=== PATIENT | male | born 1940 | race Caucasian/White ===

== ENCOUNTER 2021-08-16 23:00 | Inpatient (IN) | payer MEDICARE, OTHER ==
[~2021-08-16] VITALS: Ht 172.7 cm; Wt 96.8 kg
[~2021-08-16 23:00] MED LIST: ALBU90OI; QUET300; VENL75ER; [UNRECOGNIZED DRUG - REMARK]
[2021-08-17 01:23] LABS: Source, Urine Foley catheter
[2021-08-17 01:27] LABS: Bilirubin, Urine Neg (Neg); Blood, Urine Neg (Neg); Glucose Qualitative, Urine Neg (Neg); Ketones, Urine Neg (Neg); Leukocyte Esterase, Urine Neg (Neg); Nitrite, Urine Neg (Neg); Protein, Urine Neg (Neg); Urobilinogen, Urine NORM (Normal); pH, Urine 6.5 (5.0-8.0)
[2021-08-17] MEDS ORDERED: ERYT.5TO BOTHEYES (01:29)
[2021-08-17] MEDS ORDERED: POTCHL20ER PO (01:29)
[2021-08-17] MEDS ORDERED: ALLO100 PO (01:30)
[2021-08-17 01:31] LABS: Appearance, Urine Clear (Clear); Color, Urine Yellow (P-Yellow)
[2021-08-17 02:05] LABS: Influenza A, PCR NEGATIVE (NEGATIVE); Influenza B, PCR NEGATIVE (NEGATIVE); Resp Syncytial Virus, PCR NEGATIVE (NEGATIVE); SARS-Cov-2 (COVID-19) PCR, MMC NEGATIVE (NEGATIVE)
[2021-08-17 05:18] LABS: BASOPHILS ABSOLUTE AUTO 0.06 K/mm3 (0.00-0.23); BASOPHILS PERCENT AUTO 1 % (0-2); EOSINOPHILS ABSOLUTE AUTO 0.11 K/mm3 (0.00-0.68); EOSINOPHILS PERCENT AUTO 1 % (0-6); Hemoglobin 9.2 g/dL (13.5-17.5); IMMATURE GRAN ABSOLUTE AUTO 0.04 K/mm3 (0.00-0.10); IMMATURE GRAN PERCENT AUTO 0 % (0-1); LYMPHOCYTES ABSOLUTE AUTO 0.69 K/mm3 (0.84-5.20); LYMPHOCYTES PERCENT AUTO 6 % (21-46); MONOCYTES ABSOLUTE AUTO 0.63 K/mm3 (0.16-1.47); MONOCYTES PERCENT AUTO 5 % (4-13); Mean Corpuscular HGB 29.4 pg (26.0-34.0); Mean Corpuscular HGB Conc 32.9 g/dL (31.5-36.5); Mean Corpuscular Volume 90 fL (80-100); Mean Platelet Volume 9.8 fL (9.1-12.4); NEUTROPHILS ABSOLUTE AUTO 10.41 K/mm3 (1.96-9.15); NEUTROPHILS PERCENT AUTO 87 % (41-73); Platelet Count 388 K/mm3 (150-400); RDW Coefficient Variation 14.3 % (11.7-14.2); RDW Standard Deviation 46.4 fL (35.1-46.3); Red Blood Cell Count 3.13 M/mm3 (4.30-5.90); White Blood Cell Count 11.94 K/mm3 (4.00-11.30)
--- NOTE | 2021-08-17 05:29 | NUR ---
SUMMARY PT ARRIVED TO FLOOR IN NO DISTRESS. PT C/O MOSTLY NECK PAIN. PT REPORTS CHRONIC PAIN ISSUES. PT DENIES ABD PAIN. PT JUST HAS SIGNIFICANT DISTENTION. PT PAIN MANAGED WELL PER EMAR. PT NPO. PT HAS A ELI CATH DRAINING TO GRAVITY, PT HAS RETENTION. PT CURRENTLY CURRENTLY SLEEPING AND IN NO DISTRESS.
[2021-08-17 05:48] LABS: Albumin, Blood 2.6 g/dL (3.4-5.0); Albumin/Globulin Ratio 0.7 (0.8-1.8); Bilirubin, Total 0.4 mg/dL (0.1-1.0); Bun/Creatinine Ratio 40.5 (12.0-20.0); Calcium, Blood 8.8 mg/dL (8.5-10.1); Creatinine, Blood 1.58 mg/dL (0.60-1.20); Globulin, Blood 3.7 g/dL (2.2-4.0); Potassium, Blood 2.7 mmol/L (3.5-5.5); Total Protein, Blood 6.3 g/dL (6.4-8.2)
--- NOTE | 2021-08-17 09:33 | NUR ---
PT CAREGIVER [facility] [phone]
--- NOTE | 2021-08-17 13:39 | NUR ---
08/17/21 1339 Radha Galo PATIENT ARRIVED TO OR WITH ELI CATHETER IN PLACE DRAINING DARK YELLOW URINE.
--- NOTE | 2021-08-17 18:16 | NUR ---
SHIFT SUMMARY PATIENT DROWSY AND SOMNOLENT THROUGHOUT SHIFT. WENT FOR TOTAL COLECTOMY WITH ILEOSTOMY PLACEMENT WITH DR GARCIA. RETURNED TO ROOM FROM PACU AT 1700. DROWSY, BRIEFLY OPENS EYES TO VERBAL STIMULATION AND STERNAL RUB. SUPP O2 AT 3L VIA NC IN MOUTH TO KEEP SATS ABOVE 90%. MIDLINE ELGIN INTACT AND VACUUM PATENT. R ABD ILEOSTOMY INTACT, NO OUTPUT AT THIS TIME. ABD SOFT AND NO LONGER DISTENDED. BILAT LOWER EXTREMETIES EDEMATOUS AND RED. ELI CATHETER PATENT AND DRAINING YELLOW URINE. LS COARSE UPPER AND DIM IN BASES. PATIENT ASLEEP AT THIS TIME 1820 WITH VSS. ROUTINE IV FLUIDS AND ABX. WILL REPORT TO PHOTO STUDIO ASSISTANT RN.
--- NOTE | 2021-08-17 23:32 | NUR ---
CALLED DR CHINCHILLA CONCERNING HEPARIN MEDICATION THAT WAS DUE AT 2100, STATED TO HOLD THE MEDICATION AND RESTART IN THE MORNING. SCD'S IN PLACE AT THIS TIME. WILL CONTINUE TO MONITOR.
[2021-08-18 04:17] LABS: BASOPHILS ABSOLUTE AUTO 0.01 K/mm3 (0.00-0.23); BASOPHILS PERCENT AUTO 0 % (0-2); EOSINOPHILS PERCENT AUTO 0 % (0-6); Hematocrit 30.7 % (37.0-53.0); Hemoglobin 9.8 g/dL (13.5-17.5); IMMATURE GRAN ABSOLUTE AUTO 0.07 K/mm3 (0.00-0.10); IMMATURE GRAN PERCENT AUTO 0 % (0-1); LYMPHOCYTES ABSOLUTE AUTO 0.29 K/mm3 (0.84-5.20); LYMPHOCYTES PERCENT AUTO 2 % (21-46); MONOCYTES ABSOLUTE AUTO 0.44 K/mm3 (0.16-1.47); MONOCYTES PERCENT AUTO 3 % (4-13); Mean Corpuscular HGB 28.8 pg (26.0-34.0); Mean Corpuscular HGB Conc 31.9 g/dL (31.5-36.5); Mean Corpuscular Volume 90 fL (80-100); Mean Platelet Volume 9.3 fL (9.1-12.4); NEUTROPHILS ABSOLUTE AUTO 15.64 K/mm3 (1.96-9.15); NEUTROPHILS PERCENT AUTO 95 % (41-73); Platelet Count 372 K/mm3 (150-400); RDW Coefficient Variation 14.2 % (11.7-14.2); White Blood Cell Count 16.45 K/mm3 (4.00-11.30)
--- NOTE | 2021-08-18 04:28 | NUR ---
SHIFT SUMMARY A/O X2-3- BEDREST THROUGHOUT SHIFT. VERY DROWSY AT THE BEGINING OF SHIFT, BUT APPEARS MORE AWAKE AT THIS TIME. POD1 TOTAL COLECTOMY WITH ILEOSTOMY. ILEOSTOMY PUTTING OUT LITTLE DRAINAGE. MIDLINE ELGIN DRESSING C/D/I. ELI DRAINING TO GRAVITY, CLEAR YELLOW URINE. TOLERATING SIPS AND CHIPS, NO N/V. PT REPORTS LITTLE PAIN IN HIS ABDOMEN. VITAL SIGNS HAVE BEEN STABLE. WILL CONTINUE TO MONITOR AND REPORT TO ONCOMING RN.
[2021-08-18 04:48] LABS: Albumin, Blood 2.4 g/dL (3.4-5.0); Anion Gap 7 mmol/L (6-16); Blood Urea Nitrogen 55 mg/dL (8-24); Bun/Creatinine Ratio 37.2 (12.0-20.0); CO2, Blood 34 mmol/L (21-32); Calcium, Blood 8.8 mg/dL (8.5-10.1); Chloride, Blood 98 mmol/L (98-108); Creatinine, Blood 1.48 mg/dL (0.60-1.20); Glomerular Filtration Rate 46 (60-); Glucose, Blood 127 mg/dL (70-99); Phosphorus, Blood 3.8 mg/dL (2.5-4.9); Potassium, Blood 3.5 mmol/L (3.5-5.5); Sodium, Blood 139 mmol/L (136-145)
--- NOTE | 2021-08-18 19:20 | NUR ---
SHIFT SUMMARY PT IS POD#1 FROM TOTAL COLECTOMY WITH END ILEOSTOMY. PT IS HAVING LIQUID DARK GREEN OUTPUT FROM OSTOMY. PT LISTENS TO EDUCATION AND WATCHES STAFF PROVIDE CARE FOR THE OSTOMY. PT DOES NOT APPEAR READY FOR FURTHER CARE OF THE OSTOMY. PT ALLOWED STAFF TO DO MINOR REPOSITIONING TODAY. HE DECLINED TO POSITION FROM SIDE TO SIDE BUT ALLOWED STAFF TO PLACE PILLOWS UNDER BOTH HIPS AND ALLOWED STAFF TO PLACE A ALLEVYN PREVENTION DRESSING. PT IS TOLERATING A CLEAR LIQUID DIET. PT WAS SOMNOLENT AFTER TAKING PAIN MEDICATION AND UNABLE TO WORK WITH THERAPY TODAY. PT WAS GIVEN 1/2 TAB OF PAIN MEDICATION THIS EVENING TO DECREASE RISK OF SOMNOLENCE WITH NO IMPROVEMENT IN PAIN, 2ND HALF WAS NEEDED. NOC RN NOTIFIED OF DIFFICULTY MANAGING PAIN AND KEEPING PT AWAKE FOR THERAPY AND ADLS. WILL MONITOR UNTIL REPORT TO NOC RN.
--- NOTE | 2021-08-19 04:20 | NUR ---
SHIFT SUMMARY A/O X2-3, BEDREST THIS SHIFT. POD2 TOTAL COLECTOMY WITH END ILEOSTOMY, DRAINING DARK GREENISH BROWN LIQUID, PASSING FLATUS. ELGIN DRESSING ON ABDOMINAL INCISION, C/D/I. ELI DRAINING TO GRAVITY. TOLERATING SIPS AND CHIPS, NO N/V REPORTED. PAIN MANAGED WITH PO PAIN MEDICATION.
--- NOTE | 2021-08-19 19:18 | NUR ---
SHIFT SUMMARY PT IS POD#2 FROM TOTAL COLECTOMY. PAIN MANAGED WITH NORCO. PT GIVEN EXTENSIVE EDUCATION REGARDING NURSING CARE. HE IS RESISTANT TO CARE/EDUCATION. PT HAS DECLINED TO REPOSITION SIDE TO SIDE T/O THE DAY. HE REPORTS HE SITS WITH HIS HOB ELEVATED AT HOME AND PILLOWS UNDER EACH HIP, HE HAS PREFERED THAT POSITION T/O THE DAY. PT HAS BEEN EDUCATED ABOUT THE RISK OF SKIN BREAKDOWN AND THAT HE CURRENTLY HAS BLISTERS ON HIS COCCYX A RESULT OF LACK OF MOBILITY. PT HAS ALLOWED STAFF TO BOOST HIM UP IN BED AND FLOAT HEALS WITH PILLOWS. PT DID ALLOW STAFF TO PROVIDE A BED BATH AND CHANGE HIS BED WHEN IT BECAME SOILED WITH URINE. CONDOM CATH PLACED SINCE PT HAS DIFFICULTY USING URINAL. PT EDUCATED TO USE IS AND DEMONSTRATED USE. PT EDUCATED ABOUT THE IMPORTANCE OF GETTING OOB AFTER SURGERY. PT REPORTED HE COULD NOT WORK WITH THERAPY TO SIT IN THE CHAIR AND DECLINED TO GET OOB. PER THERAPY HE AGREED TO DO SOME EXCERCISED IN BED. PT WAS EDUCATED ABOUT THE RISKS OF NOT GETTING OOB, PT STATED HE WOULD GET OOB TOMORROW. DR. GARCIA NOTIFIED OF PT RELUCTANCE TO MOBILIZE. PT RESPONDS WELL TO CONSISTANT EDUCATION AND REASSURANCE. PT IS HAVING GOOD OSMOMY OUTPUT, LIQUID GREEN STOOL. PT IS RELUCTANT TO LOOK AT OR PARTICIPATE IN OSTOMY CARE. PT TOLERATING CLEAR LIQUID DIET. ADVANCE TO FULL FOR TOMORROW. REPORT GIVEN TO SAÚL SWAN.
[2021-08-20 04:53] LABS: BASOPHILS ABSOLUTE AUTO 0.04 K/mm3 (0.00-0.23); BASOPHILS PERCENT AUTO 0 % (0-2); EOSINOPHILS ABSOLUTE AUTO 0.14 K/mm3 (0.00-0.68); EOSINOPHILS PERCENT AUTO 1 % (0-6); Hematocrit 30.7 % (37.0-53.0); Hemoglobin 9.8 g/dL (13.5-17.5); IMMATURE GRAN ABSOLUTE AUTO 0.04 K/mm3 (0.00-0.10); IMMATURE GRAN PERCENT AUTO 0 % (0-1); LYMPHOCYTES ABSOLUTE AUTO 0.87 K/mm3 (0.84-5.20); LYMPHOCYTES PERCENT AUTO 8 % (21-46); MONOCYTES PERCENT AUTO 8 % (4-13); Mean Corpuscular HGB 28.9 pg (26.0-34.0); Mean Corpuscular HGB Conc 31.9 g/dL (31.5-36.5); Mean Corpuscular Volume 91 fL (80-100); Mean Platelet Volume 9.5 fL (9.1-12.4); NEUTROPHILS ABSOLUTE AUTO 8.82 K/mm3 (1.96-9.15); NEUTROPHILS PERCENT AUTO 82 % (41-73); Platelet Count 389 K/mm3 (150-400); RDW Standard Deviation 46.4 fL (35.1-46.3); Red Blood Cell Count 3.39 M/mm3 (4.30-5.90); White Blood Cell Count 10.71 K/mm3 (4.00-11.30)
--- NOTE | 2021-08-20 05:23 | NUR ---
SHIFT SUMMARY A/O X2-3. POD3 TOTAL COLECTOMY WITH END ILEOSTOMY-ELGIN DRESSING INTACT WITH SCANT AMOUNT OF DRAINAGE. ILEOSTOMY PUTTING OUT GREEN DRAINAGE, HYPOACTIVE BOWEL TONES. TOLERATING SIPS AND CHIPS WITH NO N/V REPORTED. PAIN MANAGED WITH PO PAIN MEDICATIONS. PT REFUSED REPOSITIONING AT TIMES TONIGHT, WAS ABLE TO REPOSITION HIM 2 TIMES BUT TOOK A LOT OF CONVINCING PT AND EDUCATION OF WHY IT IS IMPORTANT. PT STATES HE "JUST WANTS TO BE LEFT ALONE HE IS TRYING TO SLEEP." CONDOM CATH IN PLACE, VOIDING WELL. VSS. WILL CONTINUE TO MONITOR AND REPORT TO ONCOMING RN.
[2021-08-20 05:29] LABS: Anion Gap 5 mmol/L (6-16); Blood Urea Nitrogen 26 mg/dL (8-24); Bun/Creatinine Ratio 26.2 (12.0-20.0); CO2, Blood 31 mmol/L (21-32); Calcium, Blood 8.6 mg/dL (8.5-10.1); Chloride, Blood 99 mmol/L (98-108); Creatinine, Blood 0.99 mg/dL (0.60-1.20); Glomerular Filtration Rate >60 (60-); Glucose, Blood 131 mg/dL (70-99); Magnesium, Blood 1.8 mg/dL (1.6-2.4); Phosphorus, Blood 2.3 mg/dL (2.5-4.9); Potassium, Blood 3.5 mmol/L (3.5-5.5); Sodium, Blood 135 mmol/L (136-145)
--- NOTE | 2021-08-20 17:43 | NUR ---
SHIFT SUMMARY A&O X4, S/P TOTAL COLECTOMY. MIDLINE INCISION W/ MEDIPORE DRESSING IN PLACE & CHANGED TODAY. OSTOMY TO R SIDE OF ABDOMEN, DRAINING DARK BROWN/GREEN LIQUID STOOL & BURPED FREQ T/O SHIFT. OSTOMY APPLIANCE CHANGED TODAY, PATIENT TOLERATED WELL. TOLERATING PO FULL LIQUID DIET, DENIES N/V. DENIES ABDOMINAL PAIN, REPORTS 9/10 PAIN TO HIS NECK T/O SHIFT, REPORTS HE HAS "HAD IT FOR A LONG TIME", MEDICATED PER EMAR. PATIENT IRRITABLE & APPEARS UNHAPPY. VERY WETZEL & DEMANDING W/ STAFF, REPEATS NEEDS CONTINUOUSLY, VERY SPECIFIC ABOUT PALCEMENT OF ITEMS & POSITIONING. REFUSED SIDE TO SIDE POSITIONING T/O SHIFT, PILLOWS UNDER BOTH HIPS TO FLOAT SACRUM. WORKED W/ PT TODAY & UP TO CHAIR FOR A SHORT PERIOD OF TIME. STAND & PIVOT TRANSFER TO AND FROM CHAIR. WILL CONTINUE TO MONITOR & REPORT TO ONCOMING RN.
--- NOTE | 2021-08-21 04:58 | NUR ---
SHIFT SUMMARY A/O X2-3. POD4 TOTAL COLECTOMY WITH END ILEOSTOMY. ILEOSTOMY PUTTING OUT BROWN LIQUID AND PASSING FLATUS. PAIN MANAGED WITH PO PAIN MEDICATION. PT REFUSED REPOSITIONING SEVERAL TIMES TONIGHT AND STATES HE IS COMFORTABLE, BUT CALLS FREQUENTLY TO HAVE PILLOW REPOSITIONED AND HEAD OF BED RAISED OR LOWERED SLIGHTY. IRRITABLE WHEN CARE IS BEING PERFORMED. FULL LIQUID DIET TOLERATED FOR DINNER, NO N/V REPORTED. CONDOM CATH IN PLACE FOR INCONTINENCE, VOIDING WELL. TELE IN PLACE, SINUS RHYTHYM THROUGHOUT SHIFT. MEDIPORE IN PLACE OVER ABDOMINAL INCISION, C/D/I. VITAL SIGNS STABLE. WILL CONTINUE TO MONITOR AND REPORT TO ONCOMING RN.
--- NOTE | 2021-08-21 17:36 | NUR ---
SHIFT SUMMARY PT HAS BEEN WITHDRAWAN AND NON-TALKATIVE THROUGHOUT THE DURATION OF THE SHIFT. HE WAS INITIALLY NON-COOPERATIVE W/ ASSESSMENT, LIMITING THE CAPABILITIES OF STAFF TO ASSESS. THE PT HAS SPENT MOST OF THE SHIFT SLEEPING, OCCASIONALLY AWAKING FOR MEALS OR PAIN MEDICATION REQUESTS. PAIN CONTROLLED W/ NORCO ORDERED. OTHER MEDICATIONS ALSO GIVEN ORDERED. AT THIS TIME, PT IS RESTING AND EATING DINNER.
--- NOTE | 2021-08-21 18:58 | NUR ---
UNCOOPERATIVE PT UNCOOPERATIVE c MOST NURSING CARE T/O THE SHIFT, ASSESSMENT MOSTLY REFUSED OR DONE IN PIECES. MIDLINE DRESSING C/D/I, OSTOMY BEEFY/PINK WITH LOTS OF GAS OUTPUT. PT ENCOURAGED TO PARTICIPATE/COOPERATE IN HIS CARE. WILL CONTINUE TO ENCOURAGE AND EDUCATE. REPORT GIVEN TO SAÚL SWAN.
--- NOTE | 2021-08-21 22:38 | NUR ---
OSTOMY APPLIANCE AND ABD DRESSING CHANGED D/T LEAKAGE OF OSTOMY. PT CONDOM CATHETER ALSO CHANGED AND RESIZED. OSTOMY APPLIANCE DRAINED, CATHETER BAG DRAINED FOR 1100ML
--- NOTE | 2021-08-22 05:54 | NUR ---
PT IS A&O AND IS A MAX ASSIST IN BED. RECENT SURGICAL PLACEMENT OF OSTOMY, POST OP DAY 5. OSTOMY PRODUCING LIQUID BROWN STOOL, APPLIANCE CHANGED THIS SHIFT, PT TOLERATED PROCEEDURE WELL. HAS ABD INCISION WITH IZZY, ABD DRESSING IS CDI. PAIN IS CONTROLLED WITH 2 NORCO TABS. HAS EXTERNAL CATH IN PLACE AND FUNCTIONING WELL. PT SLEEPS BETWEEN CARES. WILL CONTINUE TO MONITOR.
--- NOTE | 2021-08-22 18:41 | NUR ---
SHIFT SUMMARY: POD 5 FOR TOTAL COLECTOMY WITH END ILEOSTOMY. PT A02-3. ILEOSTOMY PRODUCTIVE PUTTING OUT BROWN LIQUID AND PASSING FLATUS. REPOSITIONED FREQUENTLY WITH PILLOWS Q2 TURNS. WHEELCHAIR BOUND AT BASELINE. PAIN IS MANAGED WITH 2 NORCOS. CONDOM CATH (SIZE M) IN PLACE, DRAINING YELLOW/CLEAR. PT RESTING, CALL LIGHT WITHIN REACH PLAN IS TO RETURN [facility] FRIDAY, ONCE CONDOM CATH AND OSTOMY SUPPLIES ARE IN PLACE.
--- NOTE | 2021-08-23 02:32 | NUR ---
PT IS ALERT TO SELF AND PLACE, DISORIENTED TO TIME AND SITUATION. POST OP DAY 7 FOR BOWEL OBSTRUCTION AND PLACEMENT OF ILEOSTOMY. PASSAGE OF FLATUS AND LIQUID BROWN STOOLS. EXTERNAL CATHETER FUNCTIONING WELL. PT USES WC AT BASELINE, DOES NOT WANT TO GET OOB. PAIN CONTROLLED W/ 2 NORCO TABS AND REPOSITIONING. MIDLINE DRESSING IS CDI, HAS ALLEVAN DRESSING ON COCCYX. WILL CONTINUE TO MONITOR THIS PATIENT.
[2021-08-23] MEDS ORDERED: HYDROCODONE PO (03:55)
[2021-08-23] MEDS ORDERED: TRELEGY ELLIPT1 EAC1 INH (03:56)
[2021-08-23] MEDS ORDERED: FURO40 PO (03:57)
[2021-08-23] MEDS ORDERED: METO5 PO (03:57)
[2021-08-23] MEDS ORDERED: TAMSULOSIN HCL0.4 M1 PO (03:58)
[2021-08-23] MEDS ORDERED: SPIRONOLACTONE50 MG PO (04:01)
[2021-08-23] MEDS ORDERED: QUETIAPINE FUMA25 MG PO (04:02)
[2021-08-23] MEDS ORDERED: PANTOPRAZOLE SO40 M2 PO (04:05)
[2021-08-23] MEDS ORDERED: LOSA50 PO (04:06)
[2021-08-23] MEDS ORDERED: FINA5 PO (04:07)
[2021-08-23] MEDS ORDERED: CATAPRES0.1 MG PO (04:08)
[2021-08-23] MEDS ORDERED: DEPAKOTE ER250 M2 PO (04:08)
[2021-08-23] MEDS ORDERED: CARTIA XT PO (04:09)
--- NOTE | 2021-08-23 06:10 | NUR ---
SHIFT SUMMARY PT RECEIVED TO ROOM 345 FROM THE SURGICAL UNIT AT APPROX 0400. PT A/O X 3, NO C/O NAUSEA, ROD ICE CHIPS AND REGULAR DIET. ILEOSTOMY TO RLQ, STOMA PINK/MOIST, 100 ML LIQUID, BROWN STOOL AND FLATUS EMPTIED FROM BAG. PREVIOUS RN STATED OSTOMY WAS CHANGED LAST EVENING. PT REPOSITIONED FOR COMFORT AND TO PREVENT SKIN BREAKDOWN, MEPILEX TO COCCYX DUE TO REDENNED SKIN. BLE'S ELEVATED ON PILLOWS, MEPILEX TO HEELS FOR PROPHYLAXIS. PT REPORTS HE IS W/C BOUND AT BASELINE. DRSG TO MIDLINE INCISION C/D/I. SR NOTED ON TELE. VSS, ANTICIPATE D/C WHEN MEDICALLY STABLE.
--- NOTE | 2021-08-23 17:20 | NUR ---
SHIFT SUMMARY: PT WAS TRANSFERRED FROM SURGICAL FLOOR AT 0400 THIS MORNING. THE PATIENT IS ALERT AND ORIENTED X2-3 (NOT TO TIME OR DATE). HE IS TOLERATING ICE CHIPS AND A REGULAR DIET. THE PATIENT HAD A RECENT COLECTOMY WITH RESULTANT ILEOSTOMY TO [facility]. THE STOMA IS PINK AND MOIST, EMITTING LIQUID BROWN STOOL. OSTOMY BAG WAS CHANGED TODAY. A MEPILEX IS IN PLACE OVER HIS COCCYX. PILLOWS WERE PLACED TO FLOAT THE PATIENT'S HIPS. PILLOWS ALSO PLACED UNDER THE PATIENT'S LEGS. DRESSING TO MIDLINE ABDOMINAL INCISION WAS REPLACED TODAY. SR NOTED ON TELE. VITAL SIGNS STABLE. PT WILL BE DISCHARGED BACK TO [facility] TOMORROW M[facility].
[2021-08-23] MEDS ORDERED: Norco 5-325 Ta1 EACH PO (18:09)
--- NOTE | 2021-08-24 06:13 | NUR ---
SHIFT SUMMARY PT RESTED WELL, MED PER MAR FOR C/O CHRONIC NECK PAIN, REPOSITIONED FOR COMFORT AND TO PREVENT SKIN BREAKDOWN. NO C/O NAUSEA, ROD REGULAR DIET, ILEOSTOMY WITH LOOSE/SOFT DARK BROWN/GREEN OUTPUT NOTED. ILEOSTOMY APPLIANCE CHANGED THIS AM, PT TOLERATED WELL. PT USING CONDOM CATH, VOIDING WITHOUT DIFFICULTY. VSS, ANTICIPATE D/C AT 0830 TODAY TO [facility].
--- NOTE | 2021-08-24 09:15 | NUR ---
PT D/C'D TO [facility] IN [place], TRANSPORTATION VIA [facility]. CONDOM CATH IN PLACE WELL VIA IN. IV D/C'D WNL. ILEOSTOMY AND CONDOM CATH SUPPLIES SENT WITH PT. REPORT GIVEN TO HAYLIE.
== END 2021-08-24 09:00 | disposition home or self-care (01) | DRG 330 ==
LOC: MEDS 23:00 → SURS 23:00 → MEDS 08-23 03:59
PROVIDERS: Internal Medicine; Surgery; ADMIT Internal Medicine
PROC: 0DTN0ZZ Resection of Sigmoid Colon, Open Approach (ICD-10-PCS; principal; 2021-08-17 12:30)
PROC: 0D1B0Z4 Bypass Ileum to Cutaneous, Open Approach (ICD-10-PCS; 2021-08-17 12:30)
DX: K56.699 Other intestinal obstruction unspecified as to partial versus complete obstruction (principal); K59.39 Other megacolon; J44.9 Chronic obstructive pulmonary disease, unspecified; J45.909 Unspecified asthma, uncomplicated; E78.5 Hyperlipidemia, unspecified; E87.6 Hypokalemia; I48.0 Paroxysmal atrial fibrillation; Z20.822 Contact with and (suspected) exposure to COVID-19; I12.9 Hypertensive chronic kidney disease with stage 1 through stage 4 chronic kidney disease, or unspecified chronic kidney disease; D63.1 Anemia in chronic kidney disease; N18.30 Chronic kidney disease, stage 3 unspecified; I25.10 Atherosclerotic heart disease of native coronary artery without angina pectoris; N40.0 Benign prostatic hyperplasia without lower urinary tract symptoms; E66.9 Obesity, unspecified; I25.2 Old myocardial infarction; Z88.8 Allergy status to other drugs, medicaments and biological substances; Z88.2 Allergy status to sulfonamides; Z88.0 Allergy status to penicillin; Z98.890 Other specified postprocedural states; Z95.1 Presence of aortocoronary bypass graft; Z90.49 Acquired absence of other specified parts of digestive tract; Z93.3 Colostomy status
CPT/HCPCS: 0241U; 36415; 80048; 80053; 80069; 81003; 83735; 84100; 85025; 88307; 93005; 93010; 97110; 97161; 97530; A9270; C9113; J0330; J1100; J1644; J1885; J1956; J2405; J2704; J2710; J2765; J3010; J3480; J7030; J7050; J7120